=== PATIENT | male | born 1935 | race Caucasian/White ===

== ENCOUNTER → 2017-06-02 08:39 | Outpatient (CLI) | payer MEDICARE, SELFPAY ==
--- NOTE | 2017-06-02 08:58 | CT_ITS ---
CT abdomen pelvis wo con Ordering Physician: Juan Pablo Barlow Patient Age: 81 years: Male HISTORY: ITS.REASON: MALIGNANT NEOPLASM OF SPLENIC FLEXURE Previous right colectomy. The right colon cancer TECHNIQUE: Helical CT scanning performed through the abdomen and pelvis. No oral IV contrast utilized COMPARISON :Previous July [address] chest from January 2017 FINDINGS Lung bases are clear. Minimal less thanthan 4.5 mm x 3 mm fissural nodulenodule posterior to the major fissure on axial slice 9, sagittal 22. Doubt significance but noted Abdomen/pelvis. Lack of oral and IV contrast decreases sensitivity. Liver. No focal lesions. On this noncontrast study Spleen. Unremarkable. Anchors unremarkable. Diffuse fatty changes no focal lesions. No bilirubin ductal dilatation. Gallbladder if present is very small and contracted. Kidneys. No urinary tract obstruction. Small punctate calculi both kidneys. Right kidney. Apparent tiny nonobstructive calculi towards upper pole Left kidney small 3. Millimeter at upper pole. Ureters unremarkable No significant retroperitoneal adenopathy. There are a few small retroperitoneal nodes scattered small and fairly stable Large bowel. Right hemicolectomy. Anastomosis is seen in the transverse colon, appears intact. Moderate stool is seen throughout the colon. No obvious mass by CT.. Attention directed towards the splenic flexure as per history. No obvious mass here only question upper normal wall thickness here by CT... A few diverticula at the descending colon and sigmoid colon noted. Small bowel upper normal in caliber at the left upper quadrant with scattered small Pelvis. Bilateral inguinal hernias. In addition to the generous fat including omental fat and vessels. No inflammation or The smaller left inguinal hernia contains only fat Osseous. No osseous lesions. Mild degenerative changes. Hypertrophic facet changes most evident throughout the lower L-spine. Pelvis. Moderate size prostate measuring 0.9 cm diameter. ======IMPRESSION: 1. No new findings. No definitive nor obvious metastatic disease . 2. Right colon been removed. The anastomosis of Small bowel to the mid transverse colon appears intact . 3.. Bilateral inguinal hernias. Right inguinal hernia does contain a loop of distal sigmoid colon. No inflammation or significant obstruction 4. Small bowel upper normal caliber in the left abdomen with a few small air-fluid levels. Nonspecific. 5. Small punctate renal calculi bilaterally. Nonobstructive. 6. Stable Tiny less than 4.5 mm x 3 mm right lung nodule. Likely benign fissural nodule stable since 01/22/2016.
[2017-06-02 10:04] LABS: Sodium 135 mmol/L (136-145)
[2017-06-02 10:05] LABS: Alanine Aminotransferase 37 U/L (12-78); Albumin Level 3.8 gm/dL (3.4-5.0); Alkaline Phosphatase 75 U/L (46-116); Anion Gap 6.6 mEq/L (5-15); Aspartate Amino Transferase 25 U/L (15-37); Bilirubin,Total 0.7 mg/dL (0.2-1.0); Blood Urea Nitrogen 23 mg/dL (7-18); Calcium 9.2 mg/dL (8.5-10.1); Carbon Dioxide 30 mmol/L (21.0-32.0); Chloride 103 mmol/L (98-107); Estimated Glomerular Filt Rate 49 ml/min (>60); GFR (African American) 59 ML/MIN (>60); Globulin 3.9 gm/dl (1.3-3.2); Glucose 90 mg/dL (74-106); Potassium 4.6 mmoL/L (3.5-5.1); Total Protein,Serum 7.7 gm/dL (6.4-8.2)
[2017-06-02 10:24] LABS: Basophils % 0.8 % (0.1-2.0); Eosinophils # 0.1 K/mm3 (0.0-0.4); Eosinophils % 2.6 % (0.1-12.0); Hemoglobin 17.1 g/dL (14.1-18.0); Lymphocytes # 1.5 K/mm3 (0.7-4.5); Lymphocytes % 31.3 K/mm3 (10-50); Mean Corpuscular Hemoglobin 28.4 pg (27.0-31.2); Mean Corpuscular Volume 91.5 fl (80-94); Mean Platelet Volume 7.3 fl (7.4-10.4); Monocytes # 0.3 K/mm3 (0.1-1.0); Monocytes % 6.8 % (1.7-9.3); Neutrophils # 2.8 K/mm3 (1.8-7.8); Neutrophils % 58.5 % (37.0-80.0); Platelet Count 237 K/mm3 (142-424); Red Blood Count 6.01 M/mm3 (4.60-6.20); Red Cell Distribution Width 13.2 % (11.5-17.5); White Blood Count 4.7 K/mm3 (4.8-10.8)
[2017-06-05 11:53] LABS: CEA 3.5 ng/mL (0.0-4.7)
== END ==
PROVIDERS: Family Provider Family Medicine; PCP Internal Medicine Hematology & Oncology; Visit Provider Internal Medicine Hematology & Oncology
DX: C18.5 Malignant neoplasm of splenic flexure (principal); R91.8 Other nonspecific abnormal finding of lung field
CPT/HCPCS: 36415; 74176; 80053; 82378; 85025

== ENCOUNTER → 2017-09-02 08:35 | Outpatient (CLI) | payer MEDICARE, SELFPAY ==
--- NOTE | 2017-09-02 08:38 | CT_ITS ---
CT chest wo con HISTORY: Follow-up pulmonary nodules and mediastinal lymph nodes ITS.REASON: MULTIPLE PULMONARY NODULES ORDERING PHYSICIAN: Pavithra Cabrera PATIENT AGE: 82 years COMPARISON: 01/31/2017 Technique: Axial images obtained. Sagittal and coronal reformatted images are also generated and reviewed. All CT scans at the facility use one or more dose reduction, viz: automated exposure control; ma/kV adjustment per patient size (including targeted exams where dose is matched to indication; i.e. head); or iterative reconstruction technique. FINDINGS: Scattered small nodes are once again noted within the mediastinum not significant changed. No mediastinal or hilar mass or adenopathy. Coronary artery calcifications are noted. Normal heart size without evidence of pericardial effusion. A cluster of small nodules are once again noted in the left upper lobe posteriorly not significantly changed. No new nodules are evident. No effusions or infiltrates. Mild fibrotic changes are present in the right lung base. No acute bony anomalies. There are mild degenerative changes in the thoracic spine. IMPRESSION: 1. Overall stable CT appearance of the chest. 2. Overall no change in the cluster of small nodules in the left upper lobe.
--- NOTE | 2017-09-02 08:38 | CT_ITS ---
CT abdomen pelvis wo con CLINICAL INDICATION: Follow-up: Cancer ITS.REASON: H/O COLON CA STAGE II ORDERING PHYSICIAN: Pavithra Cabrera PATIENT AGE: 82 years COMPARISON: 06/02/2017 TECHNIQUE: Axial images obtained with sagittal and coronal reformats. All CT scans at the facility use one or more dose reduction, viz: automated exposure control; ma/kV adjustment per patient size (including targeted exams where dose is matched to indication; i.e. head); or iterative reconstruction technique. PROCEDURE: Oral Contrast: Redicat IV Contrast: None . FINDINGS: The liver, spleen, adrenal glands, and pancreas have an unremarkable unenhanced CT appearance. No hydronephrosis. There is a nonobstructing 2 mm stone in the upper pole the left kidney. No ureteral calculi. No intestinal obstruction or free air. There has been a prior right hemicolectomy. Mild amount retained colonic feces is present within the colon. There is a moderate sized right inguinal hernia which contains a loop of sigmoid colon. There is mild stranding of the fat in the right inguinal hernia and just along the superior aspect of the hernia as well. Hernias not completely imaged along the inferior aspect. This has developed since the previous exam. No evidence of obstruction. There is a small left inguinal hernia as well. No acute bony anomalies. IMPRESSION: 1. Prior right hemicolectomy. 2. Right inguinal hernia containing a loop of sigmoid colon. There is now evidence of some stranding of the fat along the proximal aspect of the hernia sac nonspecific. Developing incarceration is a consideration. 3. No evidence of metastatic disease.
[2017-09-02 09:25] LABS: Basophils % 0.7 % (0.1-2.0); Eosinophils # 0.1 K/mm3 (0.0-0.4); Eosinophils % 2.9 % (0.1-12.0); Hematocrit 49.8 % (42.0-52.0); Hemoglobin 15.3 g/dL (14.1-18.0); Lymphocytes # 1.2 K/mm3 (0.7-4.5); Lymphocytes % 25.9 K/mm3 (10-50); Mean Corpuscular HGB Conc 30.6 g/dL (31.8-35.4); Mean Corpuscular Hemoglobin 27.2 pg (27.0-31.2); Mean Corpuscular Volume 88.7 fl (80-94); Mean Platelet Volume 7.2 fl (7.4-10.4); Monocytes # 0.3 K/mm3 (0.1-1.0); Neutrophils # 2.9 K/mm3 (1.8-7.8); Neutrophils % 63.6 % (37.0-80.0); Platelet Count 229 K/mm3 (142-424); Red Blood Count 5.62 M/mm3 (4.60-6.20); Red Cell Distribution Width 13.9 % (11.5-17.5); White Blood Count 4.6 K/mm3 (4.8-10.8)
[2017-09-02 10:27] LABS: Alanine Aminotransferase 28 U/L (12-78); Albumin Level 3.6 gm/dL (3.4-5.0); Albumin/Globulin Ratio 1.2 (1.1-1.8); Alkaline Phosphatase 87 U/L (46-116); Anion Gap 10.4 mEq/L (5-15); Aspartate Amino Transferase 24 U/L (15-37); Bilirubin,Total 0.7 mg/dL (0.2-1.0); Blood Urea Nitrogen 18 mg/dL (7-18); Calcium 9.1 mg/dL (8.5-10.1); Carbon Dioxide 31 mmol/L (21.0-32.0); Chloride 106 mmol/L (98-107); Creatinine,Serum 1.19 mg/dL (0.70-1.30); Estimated Glomerular Filt Rate 59 ml/min (>60); GFR (African American) 71 ML/MIN (>60); Glucose 96 mg/dL (74-106); Potassium 4.4 mmoL/L (3.5-5.1); Sodium 143 mmol/L (136-145); Total Protein,Serum 6.6 gm/dL (6.4-8.2)
[2017-09-04 06:29] LABS: CEA 4.2 ng/mL (0.0-4.7)
== END ==
PROVIDERS: Family Provider Family Medicine; PCP Internal Medicine Hematology & Oncology; Visit Provider Nurse Practitioner
DX: R91.8 Other nonspecific abnormal finding of lung field (principal); C18.5 Malignant neoplasm of splenic flexure; Z85.038 Personal history of other malignant neoplasm of large intestine
CPT/HCPCS: 36415; 71250; 74176; 80053; 82378; 85025

== ENCOUNTER → 2017-12-17 09:50 | Outpatient (CLI) | payer MEDICARE, SELFPAY ==
[2017-12-17 10:16] LABS: Eosinophils # 0.2 K/mm3 (0.0-0.4); Eosinophils % 4.8 % (0.1-12.0); Hematocrit 42.2 % (42.0-52.0); Hemoglobin 13.4 g/dL (14.1-18.0); Lymphocytes # 1.1 K/mm3 (0.7-4.5); Lymphocytes % 27.3 K/mm3 (10-50); Mean Corpuscular HGB Conc 31.9 g/dL (31.8-35.4); Mean Corpuscular Hemoglobin 28.4 pg (27.0-31.2); Mean Corpuscular Volume 89.1 fl (80-94); Mean Platelet Volume 6.8 fl (7.4-10.4); Monocytes # 0.4 K/mm3 (0.1-1.0); Monocytes % 9.8 % (1.7-9.3); Neutrophils # 2.4 K/mm3 (1.8-7.8); Neutrophils % 57.2 % (37.0-80.0); Platelet Count 245 K/mm3 (142-424); Red Blood Count 4.73 M/mm3 (4.60-6.20); Red Cell Distribution Width 13.5 % (11.5-17.5); White Blood Count 4.1 K/mm3 (4.8-10.8)
[2017-12-17 10:48] LABS: Alanine Aminotransferase 21 U/L (12-78); Albumin Level 3.1 gm/dL (3.4-5.0); Alkaline Phosphatase 77 U/L (46-116); Anion Gap 10.4 mEq/L (5-15); Aspartate Amino Transferase 15 U/L (15-37); Bilirubin,Total 0.3 mg/dL (0.2-1.0); Blood Urea Nitrogen 22 mg/dL (7-18); Calcium 8.6 mg/dL (8.5-10.1); Carbon Dioxide 29 mmol/L (21.0-32.0); Chloride 112 mmol/L (98-107); Creatinine,Serum 1.16 mg/dL (0.70-1.30); Estimated Glomerular Filt Rate 61 ml/min (>60); GFR (African American) 73 ML/MIN (>60); Glucose 94 mg/dL (74-106); Potassium 4.4 mmoL/L (3.5-5.1); Sodium 147 mmol/L (136-145); Total Protein,Serum 6.1 gm/dL (6.4-8.2)
[2017-12-19 09:20] LABS: CEA 3.7 ng/mL (0.0-4.7)
== END ==
PROVIDERS: PCP Family Medicine; Visit Provider Internal Medicine Hematology & Oncology
DX: C18.5 Malignant neoplasm of splenic flexure (principal)
CPT/HCPCS: 36415; 80053; 82378; 85025

== ENCOUNTER → 2018-01-21 12:09 | Outpatient (CLI) | payer MEDICARE, SELFPAY ==
--- NOTE | 2018-01-21 12:22 | CT_ITS ---
CT pelvis w con INDICATION: Prior hernia repair ITS.REASON: swelling ORDERING PHYSICIAN: Italo Leonardo MD PATIENT AGE: 82 years COMPARISON: 09/02/2017 TECHNIQUE: Axial images are obtained following the intravenous administration of 75 mL's of Isovue-370 contrast. Sagittal and coronal reformatted images are reviewed as well. All CT scans at the facility use one or more dose reduction, viz: automated exposure control, ma/kV adjustment per patient size (including targeted exams where dose is matched to indication, i.e. head), or iterative reconstruction technique. FINDINGS: There has been an interval right inguinal hernia repair. There is increased soft tissue density at the inguinal canal which may be related to scarring/postsurgical change There is thickening of the remaining cord on the right inferior to the level of the hernia. Loculated fluid collection is noted along the superior aspect of the testicle on the right measuring 7.5 cm longitudinal and 3.3 cm transverse. There is a small right hydrocele also noted. No gas is evident within this collection. There is a small left inguinal hernia containing fat. Incidental note is made of mild dilatation of the left ureter. This was present previously. No ureteral calculus is evident. No acute bony anomalies. IMPRESSION: 1. 7.5 x 3.3 cm loculated fluid collections superior to the right testicle. This may be due to post operative seroma/hematoma or abscess. 2. Interval right hernia repair with thickening of the spur medical record in the inguinal ligament and postsurgical changes in the right inguinal canal. 3. Small left inguinal hernia contains fat IMPRESSION:
[2018-01-21 12:33] LABS: Blood Urea Nitrogen 24 mg/dL (7-18); Creatinine,Serum 1.12 mg/dL (0.70-1.30); Estimated Glomerular Filt Rate 63 ml/min (>60); GFR (African American) 76 ML/MIN (>60)
== END ==
PROVIDERS: PCP Family Medicine; Visit Provider Surgery
DX: K46.9 Unspecified abdominal hernia without obstruction or gangrene (principal)
CPT/HCPCS: 36415; 72193; 82565; 84520; Q9967

== ENCOUNTER → 2018-06-15 08:56 | Outpatient (CLI) | payer MEDICARE, SELFPAY ==
--- NOTE | 2018-06-15 09:08 | XR_ITS ---
XR lumbar spine min 4V Ordering Physician: Tete Green Patient Age: 82 years: Male HISTORY: ITS.REASON: LOW BACK PAIN TECHNIQUE: Five-view lumbar spine series. COMPARISON ... CT pelvis December 2017 ... CT abdomen/pelvis reconstruction views of spine from August 2017 & July 2013 CT FINDINGS Vertebral bodies intact with no compression fractures. ... L5/S1. Disc space narrowing most evident posteriorly. ( I favor rotation on today's lateral view L-spine as well as the lateral spot views account for the appearance at the lumbosacral junction on these views, with no significant listhesis present,-particularly when reviewed in conjunction with the Dec 2017 CT pelvis) . L4/5. Mild disc space narrowing posteriorly L3/4 disc intact. L2/3 .. Borderlinedisc space narrowing, Posteriorly Anterior osteophytes are most pronounced at the lower thoracic spine and thoracolumbar junction region. Only minor marginal osteophytes lumbar spine. Pedicles and transverse processes intact. Sacrum and SI joint satisfactory. Degenerative facet changes lower L spine most evident L4/5, and to lesser degree L5/S1, L3/4. No pars defect evident on the oblique views. The bones well mineralized.. Atherosclerotic calcification lower abdominal aorta noted but with no aneurysmal dilatation IMPRESSION: 1. No acute findings. Vertebral bodies intact. 2. Moderate Degenerative changes L-spine: ... Degenerative disc space narrowing most notable L5/S1. .... Also Minimal disc space narrowing posterior aspect of the L4/5 & L2/3 disc. ........ Degenerative facet changes bilaterally most evident at L4/5 and followed by L5/S1, L3/4.
== END ==
PROVIDERS: PCP Family Medicine; Visit Provider Nurse Practitioner Family
DX: M54.5 Low back pain (principal)
CPT/HCPCS: 72110

== ENCOUNTER → 2018-09-10 07:57 | Outpatient (CLI) | payer MEDICARE, SELFPAY ==
--- NOTE | 2018-09-10 08:12 | CT_ITS ---
CT chest wo con HISTORY: Follow-up lung nodules, history of colon cancer ITS.REASON: PULMONARY NODULES ORDERING PHYSICIAN: Pavithra Cabrera PATIENT AGE: 83 years COMPARISON: 09/02/2017 Technique: Axial images obtained. Sagittal, and coronal reformatted images are also generated and reviewed. All CT scans at the facility use one or more dose reduction, viz: automated exposure control, ma/kV adjustment per patient size (including targeted exams where dose is matched to indication, i.e. head), or iterative reconstruction technique. FINDINGS: No mediastinal or hilar mass or adenopathy. There are coronary artery calcifications.. There is mild cardiomegaly. There is mild bronchial thickening. Subpleural nodules present in the right lower lobe posteriorly and medially measuring 10 mm not readily apparent on the previous study best seen on the coronal reformatted images. There is some additional pleural thickening in the right lung base posteriorly. There is a small nodular density left upper lobe laterally at 6 mm linear in nature and may be due to areas of scarring. Not readily apparent on the previous exam. A bilobed nodular density is present within the left upper lobe posteriorly measuring approximately 14 mm x 8 mm. This is not significant change compared to the previous exam. There is however a new nodule in the superior segment of the left lower lobe measuring 11 x 7 mm. The margins are somewhat irregular. There is an additional new nodule within the lingula measures 8 mm a new nodular opacity is also present in the right lower lobe measuring 6 mm. No effusions or infiltrates. No acute bony anomalies. There are degenerative changes of the thoracic spine. There is some patchy groundglass density in the left lower lobe nonspecific IMPRESSION: 1. There are new bilateral pulmonary nodules as described above which are suspicious for metastatic disease. 2. Previously noted bilobular nodular density in the left upper lobe posteriorly is not significantly changed
[2018-09-10 08:23] LABS: Basophils # 0.1 K/mm3 (0-0.2); Basophils % 1.1 % (0.1-2.0); Eosinophils # 0.1 K/mm3 (0.0-0.4); Eosinophils % 2.2 % (0.1-12.0); Hematocrit 45.8 % (42.0-52.0); Hemoglobin 14.2 g/dL (14.1-18.0); Lymphocytes # 1.6 K/mm3 (0.7-4.5); Lymphocytes % 30.2 % (10-50); Mean Corpuscular HGB Conc 31.1 g/dL (31.8-35.4); Mean Corpuscular Hemoglobin 27.4 pg (27.0-31.2); Mean Corpuscular Volume 88.1 fl (80-94); Mean Platelet Volume 7.1 fl (7.4-10.4); Monocytes # 0.4 K/mm3 (0.1-1.0); Monocytes % 6.9 % (1.7-9.3); Neutrophils # 3.1 K/mm3 (1.8-7.8); Neutrophils % 59.5 % (37.0-80.0); Platelet Count 205 K/mm3 (142-424); Red Cell Distribution Width 14.1 % (11.5-17.5); White Blood Count 5.2 K/mm3 (4.8-10.8)
[2018-09-10 08:32] LABS: Alanine Aminotransferase 22 U/L (12-78); Albumin Level 3.4 gm/dL (3.4-5.0); Alkaline Phosphatase 66 U/L (46-116); Anion Gap 7.6 mEq/L (5-15); Aspartate Amino Transferase 16 U/L (15-37); Bilirubin,Total 0.5 mg/dL (0.2-1.0); Blood Urea Nitrogen 27 mg/dL (7-18); Calcium 8.6 mg/dL (8.5-10.1); Carbon Dioxide 30 mmol/L (21.0-32.0); Chloride 108 mmol/L (98-107); Creatinine,Serum 1.37 mg/dL (0.70-1.30); Estimated Glomerular Filt Rate 50 ml/min (>60); GFR (African American) 60 ML/MIN (>60); Globulin 3.3 gm/dl (1.3-3.2); Glucose 89 mg/dL (74-106); Potassium 4.6 mmoL/L (3.5-5.1); Sodium 141 mmol/L (136-145); Total Protein,Serum 6.7 gm/dL (6.4-8.2)
== END ==
PROVIDERS: Visit Provider Nurse Practitioner
DX: Z85.038 Personal history of other malignant neoplasm of large intestine (principal); R91.8 Other nonspecific abnormal finding of lung field
CPT/HCPCS: 36415; 71250; 80053; 85025

== ENCOUNTER → 2019-02-08 13:34 | Outpatient (CLI) | payer MEDICARE, SELFPAY ==
--- NOTE | 2019-02-08 13:42 | CT_ITS ---
PROCEDURE: CT CHEST WO CON CLINICAL INDICATION: LUNG NODULE Follow-up lung nodule, cough COMPARISON: CHESTWO CT chest wo con from 09/02/[address] chest wo con from 09/10/2018 TECHNIQUE: Axial images obtained with sagittal and coronal reformats. All CT scans at the facility use one or more dose reduction, viz: automated exposure control, ma/kV adjustment per patient size (including targeted exams where dose is matched to indication, i.e. head), or iterative reconstruction technique. FINDINGS: Small nodes are present in the mediastinum and appears slightly more bulky when compared to the previous exam. For instance, there is a small mic cluster in the pretracheal region which measures 2 x 1.8 cm previously 1.7 x 1.4 cm. Coronary artery calcifications are present. There is also some aortic valvular calcification noted. There is a small hiatal hernia. Small lymph nodes are present in the left infrahilar region which do not appear significantly changed. An enlarged subcarinal lymph node is present which measures 2.6 by 1.5 cm previously 2.2 by 1.1 cm. There is patchy alveolar opacification in the central aspect of the right upper lobe posteriorly and in the right lung base laterally. This has developed compared to the previous exam. A small cluster of nodules is present in the left upper lobe posteriorly not significantly changed measuring approximately 11 by 8 mm. There are mild atelectatic changes in the left lung base. No acute bony findings. There are few small axillary lymph nodes present IMPRESSION: 1. Mild mediastinal adenopathy which is slightly increased compared to the previous exam. This is nonspecific and could be reactive from inflammation or infection or secondary to neoplasm. Consider 3 month follow-up to confirm short term stability. 2. Cluster of small nodules in the left upper lobe is unchanged. 3. Patchy infiltrate is present in the right upper lobe. Dictated by: Addison Royal MD 02/08/2019 14:56 Electronically signed by Addison Royal MD in [facility] 02/09/2019 10:40
== END ==
PROVIDERS: PCP Family Medicine; Visit Provider Nurse Practitioner Family
DX: R91.1 Solitary pulmonary nodule (principal)
CPT/HCPCS: 71250

== ENCOUNTER → 2019-02-16 09:18 | Outpatient (CLI) | payer MEDICARE, SELFPAY ==
[2019-02-16 10:14] LABS: Basophils % 0.5 % (0.1-2.0); Eosinophils # 0.1 K/mm3 (0.0-0.4); Eosinophils % 0.7 % (0.1-12.0); Hematocrit 49.4 % (42.0-52.0); Hemoglobin 15.2 g/dL (14.1-18.0); Lymphocytes # 1.9 K/mm3 (0.7-4.5); Lymphocytes % 26.5 % (10-50); Mean Corpuscular HGB Conc 30.7 g/dL (31.8-35.4); Mean Corpuscular Hemoglobin 28.4 pg (27.0-31.2); Mean Corpuscular Volume 92.5 fl (80-94); Mean Platelet Volume 7.6 fl (7.4-10.4); Monocytes # 0.5 K/mm3 (0.1-1.0); Monocytes % 6.4 % (1.7-9.3); Neutrophils # 4.6 K/mm3 (1.8-7.8); Neutrophils % 65.9 % (37.0-80.0); Platelet Count 265 K/mm3 (142-424); Red Blood Count 5.34 M/mm3 (4.60-6.20); Red Cell Distribution Width 14.2 % (11.5-17.5); White Blood Count 7.1 K/mm3 (4.8-10.8)
[2019-02-16 11:34] LABS: Alanine Aminotransferase 24 U/L (12-78); Albumin Level 3.5 gm/dL (3.4-5.0); Albumin/Globulin Ratio 1.2 (1.1-1.8); Alkaline Phosphatase 63 U/L (46-116); Anion Gap 11.7 mEq/L (5-15); Aspartate Amino Transferase 19 U/L (15-37); Bilirubin,Total 0.4 mg/dL (0.2-1.0); Blood Urea Nitrogen 32 mg/dL (7-18); Calcium 8.7 mg/dL (8.5-10.1); Carbon Dioxide 27 mmol/L (21.0-32.0); Chloride 108 mmol/L (98-107); Creatinine,Serum 1.36 mg/dL (0.70-1.30); Estimated Glomerular Filt Rate 50 ml/min (>60); GFR (African American) 61 ML/MIN (>60); Glucose 91 mg/dL (74-106); Potassium 4.7 mmoL/L (3.5-5.1); Sodium 142 mmol/L (136-145); Total Protein,Serum 6.5 gm/dL (6.4-8.2)
[2019-02-17 10:25] LABS: CEA 3.9 ng/mL (0.0-4.7)
== END ==
PROVIDERS: Visit Provider Internal Medicine Hematology & Oncology
DX: R91.1 Solitary pulmonary nodule (principal); Z85.46 Personal history of malignant neoplasm of prostate; R97.0 Elevated carcinoembryonic antigen [CEA]
CPT/HCPCS: 36415; 80053; 82378; 85025

== ENCOUNTER → 2019-05-19 12:41 | Outpatient (CLI) | payer MEDICARE, SELFPAY ==
--- NOTE | 2019-05-19 12:43 | CT_ITS ---
PROCEDURE: CT CHEST WO CON CLINICAL INDICATION: MALIGNANT NEOPLASM SPLENIC FLEXURE,MEDIASTINAL ADENOPATHY COMPARISON: CT CHEST WO CON from 02/08/2019 TECHNIQUE: Axial images obtained with sagittal and coronal reformats. All CT scans at the facility use one or more dose reduction, viz: automated exposure control, ma/kV adjustment per patient size (including targeted exams where dose is matched to indication, i.e. head), or iterative reconstruction technique. FINDINGS: HEART AND MEDIASTINAL STRUCTURES: There has been some interval regression of previously described mediastinal lymphadenopathy. Interval decrease in size of right pretracheal nodes and subcarinal nodes are noted. Subcarinal lymphadenopathy which did measure 1.4 x 2.5 centimeters now measures 1.1 x 1.8 centimeters. There is no new lymphadenopathy. There is cardiomegaly. There is atherosclerosis including a small amount of coronary calcification. LUNGS AND PLEURAL SPACES: Scarring is seen in both lung apices. There is no acute infiltrate. Nodule in the left mid lung field approximately 11 millimeters image 41 series 3 is again noted and not significantly changed. 5 millimeter linear density along the right oblique fissure is also unchanged. There has been some clearing of right perihilar interstitial densities. There is scarring in the left lung base. There is no pleural effusion. BONY STRUCTURES: No acute bony abnormalities apparent. UPPER ABDOMEN: Unremarkable. ADDITIONAL FINDINGS: No other significant abnormalities. IMPRESSION: Interval regression of mediastinal lymphadenopathy. Residual lymphadenopathy is noted. Clearing of right perihilar infiltrate. Continued left perihilar pulmonary nodule Dictated by: Corey Tsai 05/19/2019 14:02 Electronically signed by Corey Tsai in [facility] 05/19/2019 14:02
== END ==
PROVIDERS: PCP Family Medicine; Visit Provider Internal Medicine Hematology & Oncology
DX: C18.5 Malignant neoplasm of splenic flexure (principal)
CPT/HCPCS: 71250

== ENCOUNTER → 2019-11-16 09:17 | Outpatient (POV) | payer MEDICARE, SELFPAY | PROVIDERS: Visit Provider Dermatology | DX: Z00.00 Encounter for general adult medical examination without abnormal findings (principal) ==

== ENCOUNTER → 2020-07-11 10:59 | Outpatient (CLI) | payer MEDICARE, SELFPAY ==
[2020-07-11 12:54] LABS: Chloride 105 mmol/L (98-107)
[2020-07-11 12:55] LABS: Potassium 4.9 mmoL/L (3.5-5.1); Sodium 141 mmol/L (136-145)
[2020-07-11 12:58] LABS: Anion Gap 11.9 mEq/L (5-15); Blood Urea Nitrogen 36 mg/dl (9-20); Calcium 9.1 mg/dl (8.4-10.2); Carbon Dioxide 29 mmol/L (22.0-30.0); Estimated Glomerular Filt Rate 49 ml/min (>60); GFR (African American) 59 ML/MIN (>60); Glucose 81 mg/dl (74-100)
== END ==
PROVIDERS: Visit Provider Urology
DX: N13.8 Other obstructive and reflux uropathy (principal); N40.1 Benign prostatic hyperplasia with lower urinary tract symptoms
CPT/HCPCS: 36415; 80048

== ENCOUNTER → 2020-07-18 11:09 | Outpatient (CLI) | payer MEDICARE, SELFPAY ==
[2020-07-18 12:11] LABS: Anion Gap 12.1 mEq/L (5-15); Blood Urea Nitrogen 29 mg/dl (9-20); Calcium 9.3 mg/dl (8.4-10.2); Carbon Dioxide 28 mmol/L (22.0-30.0); Chloride 106 mmol/L (98-107); Estimated Glomerular Filt Rate 53 ml/min (>60); GFR (African American) 64 ML/MIN (>60); Glucose 117 mg/dl (74-100); Potassium 5.1 mmoL/L (3.5-5.1); Sodium 141 mmol/L (136-145)
== END ==
PROVIDERS: Visit Provider Urology
DX: Z12.5 Encounter for screening for malignant neoplasm of prostate (principal); R35.1 Nocturia
CPT/HCPCS: 36415; 80048; G0103

== ENCOUNTER → 2020-09-04 11:12 | Outpatient (CLI) | payer MEDICARE, SELFPAY ==
[2020-09-04 12:14] LABS: Blood Urea Nitrogen 30 mg/dl (9-20); Estimated Glomerular Filt Rate 58 ml/min (>60); GFR (African American) 70 ML/MIN (>60)
== END ==
PROVIDERS: Visit Provider Family Medicine
DX: Z01.812 Encounter for preprocedural laboratory examination (principal); M54.5 Low back pain
CPT/HCPCS: 36415; 82565; 84520

== ENCOUNTER → 2020-09-05 10:05 | Outpatient (CLI) | payer MEDICARE, SELFPAY ==
--- NOTE | 2020-09-05 10:15 | MR_ITS ---
PROCEDURE: MR HIP LT WO/W CON CLINICAL INDICATION: HIP PAIN, ACUTE LOW BACK PAIN COMPARISON: CT ABDPELWO CT abdomen pelvis wo con from 09/02/2017 TECHNIQUE: Routine multiplanar multi echo sequences are performed without gadolinium enhancement. FINDINGS: No fracture or dislocation. No evidence of avascular necrosis or significant effusion. No significant arthritic changes. No soft tissue masses. There is some increased T2 signal along the lateral aspect of the greater trochanter within the soft tissues and could be due to trochanteric bursitis. There is slight increased T2 signal within the right inguinal canal which may be related to postsurgical changes from prior right inguinal hernia repair. No recurrence hernia apparent. There is some mild increased T2 signal and enhancement of the right spermatic cord. This is of questionable clinical significance. IMPRESSION: 1. Possible left greater trochanteric bursitis 2. No evidence of acute fracture or dislocation or avascular necrosis 3. Postsurgical changes right inguinal region with some nonspecific increased T2 signal and enhancement of the right spermatic cord Dictated by: Addison Royal MD 09/06/2020 10:55 Addison Royal MD in [facility] 09/06/2020 10:55
--- NOTE | 2020-09-05 10:15 | MR_ITS ---
PROCEDURE: MR LUMBAR SPINE WO/W CON CLINICAL INDICATION: HIP PAIN, ACUTE LOW BACK PAIN Lt hip pain. Lower back pain. No injury or trauma. Pain comes and goes. Symptoms x1wk. COMPARISON: CT ABDPELWO CT abdomen pelvis wo con from 09/02/2017 CR [id number] XR lumbar spine min 4V from 06/15/2018 TECHNIQUE: Standard multiplanar multiecho sequences are performed without and with contrast. 3-D MIP and myelographic images are also rendered and reviewed FINDINGS: Normal alignment. The spinal cord ends at the L1 level. L1-L2: Mild degenerative disc disease with mild facet and ligamentum hypertrophic change. L2-L3: Degenerative disc disease with 2 mm retrolisthesis of L2. Type 1 discogenic endplate changes anteriorly. Small bulging disc with facet and ligamentum hypertrophic change with mild right and moderate left foraminal narrowing and mild left lateral recess narrowing with possible impingement upon the left L3 nerve root. L3-L4: Mild degenerative disc disease with facet and ligamentum hypertrophic change with moderate bilateral foraminal narrowing slightly greater on the left. L4-5: Moderate facet and ligamentum hypertrophic change with bilateral lateral recess narrowing and moderate to severe bilateral foraminal narrowing slightly greater on the left. L5-S1: Degenerative disc disease with mild bulging disc and type 2 endplate changes anteriorly with facet and ligamentum hypertrophic change and moderate bilateral foraminal narrowing slightly greater on the right. On the coronal T2 weighted images there is an incompletely imaged T2 hypointense lesion along the lower pole of the right kidney at 2 cm possibly due to a hemorrhagic cyst. Ultrasound of the kidneys may confirm cyst or solid nature. IMPRESSION: Multilevel lumbar spondylosis with degenerative disc disease, bulging disc, facet and ligamentum hypertrophic change with lateral recess and foraminal narrowing. Please see above for detailed description at each level. 2 cm hypointense T2 lesion of the right kidney which could be due to a hemorrhagic cyst. Suggest ultrasound of the kidneys for further evaluation to determine cystic or solid nature. Dictated by: Addison Royal MD 09/06/2020 08:48 Addison Royal MD in [facility] 09/06/2020 08:48
== END ==
PROVIDERS: PCP Family Medicine; Visit Provider Family Medicine
DX: M54.5 Low back pain (principal); M25.552 Pain in left hip; M25.551 Pain in right hip
CPT/HCPCS: 72158; 73723; 76376; A9576

== ENCOUNTER → 2020-09-19 14:56 | Outpatient (CLI) | payer MEDICARE, SELFPAY ==
--- NOTE | 2020-09-19 15:00 | CT_ITS ---
PROCEDURE: CT CHEST WO CON CLINICAL INDICATION: MULTIPLE PULLMONARY NODULES Follow up Lung nodules, malignant neoplasm of the colon follow-up COMPARISON: CT CT CHEST WO CON from 05/19/2019 TECHNIQUE: Axial images obtained with sagittal and coronal reformats. All CT scans at the facility use one or more dose reduction, viz: automated exposure control, ma/kV adjustment per patient size (including targeted exams where dose is matched to indication, i.e. head), or iterative reconstruction technique. FINDINGS: HEART AND MEDIASTINAL STRUCTURES: There are few small mediastinal lymph nodes unchanged. Coronary artery and aortic valve calcification noted. The there is mild thickening of the distal esophagus nonspecific LUNGS AND PLEURAL SPACES: Scattered areas of scarring once again noted. 12 mm nodular opacity once again noted in the posterior aspect the left upper lobe and does not appear significantly changed. No new nodules apparent. There is some minimal pleural thickening in the right lung base versus trace effusion. BONY STRUCTURES: Degenerative changes thoracic spine. UPPER ABDOMEN: 3 mm nonobstructing stone upper pole left kidney. ADDITIONAL FINDINGS: No other significant abnormalities. IMPRESSION: Overall stable CT appearance of the chest. Dictated by: Addison Royal MD 09/21/2020 10:18 Addison Royal MD in [facility] 09/21/2020 10:18
== END ==
PROVIDERS: PCP Family Medicine; Visit Provider Nurse Practitioner Family
DX: R91.8 Other nonspecific abnormal finding of lung field (principal)
CPT/HCPCS: 71250

== ENCOUNTER → 2020-09-27 13:37 | Outpatient (CLI) | payer MEDICARE, SELFPAY ==
--- NOTE | 2020-09-27 13:39 | US_ITS ---
PROCEDURE: US KIDNEY CLINICAL INDICATION: RENAL CYST Scattered Chun COMPARISON: MR MR LUMBAR SPINE WO/W CON from 09/05/[address] CHEST WO CON from 09/19/2020 FINDINGS: The right kidney is [id number]. There is cortical thinning of the right kidney. No hydronephrosis. In the lower pole on the right there is a 2 x 1.8 cm slightly hyperechoic nodule. This does not represent a simple cyst. The margins appear slightly irregular. The left kidney is [id number]. Cortical thinning is present on the left. No hydronephrosis or renal mass apparent. IMPRESSION: Solid-appearing 2 cm nodule lower pole on the right. This does not represent a simple cyst. Suggest CT of the kidneys without and with contrast with 3 phase post enhanced imaging for further evaluation as neoplasm is not excluded. Dictated by: Addison Royal MD 09/27/2020 16:42 Addison Royal MD in [facility] 09/27/2020 16:42
== END ==
PROVIDERS: PCP Family Medicine; Visit Provider Family Medicine
DX: N28.1 Cyst of kidney, acquired (principal)
CPT/HCPCS: 76770

== ENCOUNTER → 2020-10-07 11:34 | Outpatient (CLI) | payer MEDICARE, SELFPAY ==
[2020-10-07 13:04] LABS: Blood Urea Nitrogen 34 mg/dl (9-20); Estimated Glomerular Filt Rate 58 ml/min (>60); GFR (African American) 70 ML/MIN (>60)
== END ==
PROVIDERS: Visit Provider Family Medicine
DX: N28.89 Other specified disorders of kidney and ureter (principal)
CPT/HCPCS: 82565; 84520

== ENCOUNTER → 2020-10-11 09:55 | Outpatient (CLI) | payer MEDICARE, SELFPAY ==
--- NOTE | 2020-10-11 09:59 | CT_ITS ---
PROCEDURE: CT ABDOMEN WO/W CON CLINICAL HISTORY: NODULE OF KIDNEY Left renal nodule COMPARISON: CT ABDPELWO CT abdomen pelvis wo con from 09/02/[address] CHEST WO CON from 09/19/2020 US US KIDNEY from 09/27/2020 TECHNIQUE: Images are obtained without and with contrast and with delayed imaging. Axial images obtained with sagittal and coronal reformats. All CT scans at the facility use one or more dose reduction, viz: automated exposure control, ma/kV adjustment per patient size (including targeted exams where dose is matched to indication, i.e. head), or iterative reconstruction technique. FINDINGS: Lung base images show patchy ground-glass attenuation in the left lower lobe consistent with pneumonia. There are atelectatic changes also in the left lung base and trace effusion on the right. There is some calcification of the aortic valve. No focal liver lesion apparent. The spleen and adrenal glands are unremarkable. There is diffuse fatty infiltration of the pancreas without obvious pancreatic mass. There is a 2 cm soft tissue mass along the lower pole of the right kidney which measures 40 Hounsfield units on the unenhanced images. This corresponds to the solid-appearing lesion on the ultrasound and is suspicious for neoplasm and has developed or increased in size since the previous exam of 09/02/2017. There is no retroperitoneal adenopathy. The right renal vein is normal in caliber. There is a 3 mm stone in the lower pole of the right kidney and a 2 mm stone in the mid polar region of the left kidney and in the upper pole of the left kidney. There is mild left-sided hydronephrosis and moderate hydroureter. The distal most aspect of the ureter is not imaged on this exam which does not include the pelvis. Bowel gas pattern is nonspecific. There is a mild amount of retained colonic feces. There has been prior right hemicolectomy of the ascending colon and hepatic flexure. There are some nondistended fluid-filled loops of small bowel which are nonspecific. No acute bony anomalies. Degenerative changes are present in the spine. IMPRESSION: 2 cm soft tissue mass along the lower aspect of the right kidney suspicious for neoplasm. No evidence of retroperitoneal adenopathy. No hepatic or adrenal lesions evident. Bilateral nephrolithiasis with mild left hydronephrosis and moderate left hydroureter Dictated by: Addison Royal MD 10/11/2020 13:39 Addison Royal MD in [place] 10/11/2020 13:39
== END ==
PROVIDERS: PCP Family Medicine; Visit Provider Family Medicine
DX: N28.89 Other specified disorders of kidney and ureter (principal)
CPT/HCPCS: 74170; Q9967

== ENCOUNTER 2020-11-22 09:00 | Outpatient (RCR) | payer MEDICARE, SELFPAY ==
--- NOTE | 2020-09-20 12:04 | [facility].PTOPEV ---
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 Pt reports recent MRI of lumbar spine has revealed DDD, and OA. Chief Complaint Pain,Stiff,Paresthesia Symptom Type Ache,Sharp,Dull Symptoms Relieved By Rest/Positioning,Heat, Prescription Meds Symptoms Aggravated By Physical Activity,Twisting, Lifting Prior Functional Limitations Lifting,Housework,Bending/ Stooping Current Functional Limitations Lifting,Housework,Bending/ Stooping Symptom Description Intermittent Level of pain today (0-10) 0 Pain scale - at its best (0-10) 0 Pain scale - at its worst (0-10) 4 Lumbopelvic Eval Posture Thoracic Spine Posture Standing Position Neutral Lumbar Spine Posture Standing Position Neutral Assistive device Assistive Devices None / NA Gait Observation General Gait Pattern Observation No Deviations/Normal Palapation tenderness bilateral lumbar spinal tenderness Yes: 3/4 paraspinal tenderness Yes: 3/4 Lumbar/Sacral Palpation Findings Tenderness,Muscle Guarding Accessory Movement L-spine Vertebrae Accessory Movements Central P/A [place] that Elicit Symptoms L2 bilateral L3 bilateral L4 bilateral L5 bilateral Range of Motion Lumbar Spine Active Flexion Range of 0-50 Motion (degrees) Lumbar Spine Active Extension Range of 0-10 Motion (degrees) Left Lumbar Spine Lateral Flexion Active 0-20 Range of Motion (degrees) Right Lumbar Spine Lateral Flexion 0-20 Active Range of Motion (degrees) Lumbar Spine ROM Limitations Soft Tissue Tightness,Pain Manual Muscle Test Bilateral Knee Extension Strength Grade 4 Good Knee Flexion Strength Grade 4 Good Hip Flexion Strength Grade 4 Good Hip Abduction Strength Grade 4- Good
--- NOTE | 2020-10-18 09:19 | [facility].RHREAS ---
Rehab Reassessment Rehab OP Re-assessment Start: 10/18/20 08:59 Freq: Status: Active Protocol: Document 10/18/20 09:11 COURTNEYGALILEA (Rec: 10/18/20 09:18 SAMMI [id number]) Electronically Signed By Lexx Mitchell, PT 10/18/20 09:11 Rehab Re-assessment Subjective Subjective Pt reports 5/10 LBP right > left side on VAS, and feels 40 % better overall related to improved function Objective Objective Notes AROM: LUMBAR FLX 0-50, EXT 0- 15, B SB 0-20 MMT: B HIP FLX 4/5, B KNEE EXT 5/5, B KNEE FLX 5/5, B DF 5/5 TTP: B LUMBAR PARASPINAL MM 2/ , LUMBAR S.P.'S 2/4 (L1-5) Assessment Progress Assessment Slower Than Expected Assessment Notes SLIGHT IMPROVEMENTS IN TTP, ROM, AND STRENGTH Patient goals met STG'S 07/04 LTG'S 06/04 Goals Not Met STG'S 05/06, LTG'S 07/05 Plan Plan Pt to cont. w/skilled P.T. to make further improvements in lumbar AROM, strength, and TTP to allow for optimal function Frequency of Therapy 2-3x/wk Duration of therapy 2-4wks Time and Billing Re-Eval Time 15 Re-Eval Billing Units 0 PHYSICIAN CERTIFICATION: I certify the specified therapy services for Aneesh Banuelos are required, authorized, and reviewed every 30 days.
--- NOTE | 2020-11-16 10:42 | [facility].RHREAS ---
Rehab Reassessment Rehab OP Re-assessment Start: 10/18/20 08:59 Freq: Status: Active Protocol: Document 11/16/20 10:39 SAMMI (Rec: 11/16/20 10:42 SAMMI [id number]) Electronically Signed By Lexx Mitchell, PT 11/16/20 10:39 Rehab Re-assessment Subjective Subjective Pt reports 4- 5/10 LBP right > left side on VAS, and feels 50-60% better overall related to improved function, however, reports 'I still have trouble with throwing hay'. Objective Objective Notes AROM: LUMBAR FLX 0-50, EXT 0- 22, B SB 0-25 MMT: B HIP FLX 4-4+/5, B KNEE EXT 5/5, B KNEE FLX 5/5, B DF 5/5 TTP: B LUMBAR PARASPINAL MM 2/ 4, LUMBAR S.P.'S 1-2/4 (L1-5) Assessment Progress Assessment Progressing as Expected Assessment Notes CONTINUES TO EXHIBIT SLIGHT IMPROVEMENTS IN TTP, ROM, AND STRENGTH Patient goals met STG'S 08/03 LTG'S 07/05 Goals Not Met stg's 04/05, ltg's 06/04 Plan Plan Pt to cont. w/skilled P.T. to make further improvements in lumbar AROM, strength, and TTP to allow for optimal function Frequency of Therapy 2-3x/wk Duration of therapy 3-4wks Time and Billing Re-Eval Time 15 Re-Eval Billing Units 0 PHYSICIAN CERTIFICATION: I certify the specified therapy services for Aneesh Banuelos are required, authorized, and reviewed every 30 days.
== END 2020-11-22 09:05 | disposition home or self-care (01) ==
LOC: PT 09:00
PROVIDERS: PCP Family Medicine; Visit Provider Family Medicine
DX: M54.5 Low back pain (principal)
CPT/HCPCS: 97010; 97014; 97110; 97140; 97163; 97164; G0283